=== PATIENT | male | born 1940 | race Caucasian/White ===

== ENCOUNTER 2022-01-28 14:27 | Outpatient (REF) | payer MEDICARE, MEDICAID, SELFPAY ==
[2022-01-28 18:48] LABS: MANUAL DIFF FLAG NO
[2022-01-28 18:52] LABS: Basophils Absolute Auto 0.1 X10*3/uL (0.0-0.2); Basophils Percent Auto 0.8 % (0-2); Eosinophils Absolute Auto 0.2 X10*3/uL (0.0-0.4); Eosinophils Percent Auto 2.8 % (0-4); Hematocrit 45.9 % (42.0-52.0); Hemoglobin 15.6 g/dl (14.0-18.0); Imm Gran Abs Auto 0.02 X10*3/uL (0.00-0.03); Imm Gran Pct Auto 0.3 % (0.0-0.4); Lymphocytes Absolute Auto 1.7 X10*3/uL (1.2-4.9); Lymphocytes Percent Auto 26.3 % (20-40); Mean Corpuscular Hemoglobin 30.1 pg (27.0-33.0); Mean Corpuscular Volume 88.4 fL (80.0-98.0); Mean Platelet Volume 10.4 fL (9.4-12.4); Monocytes Absolute Auto 0.7 X10*3/uL (0.1-1.2); Monocytes Percent Auto 11.4 % (2-11); Neutrophils Absolute Auto 3.7 x10*3/uL (2.0-8.3); Neutrophils Percent Auto 58.4 % (45-73); Platelet Count 230 X10*3/uL (160-400); Red Blood Count 5.19 X10*6/uL (4.60-5.80); Red Cell Distribution Width 13.2 % (11.0-16.0); White Blood Count 6.4 X10*3/uL (4.8-10.8)
[2022-01-28 19:16] LABS: Iron 87 mcg/dL (45-160); Percent Iron Saturation 26 % (15-50); Total Iron Binding Capacity 339 mcg/dL (228-428); Unsaturated Iron Binding 252 ug/dL
[2022-01-28 19:35] LABS: Ferritin 212 ng/mL (20-250)
== END 2022-01-28 14:28 | disposition home or self-care (01) ==
LOC: HO.MANLDS 14:27
PROVIDERS: Visit Provider Physician Assistant
DX: K92.1 Melena (principal)
CPT/HCPCS: 36415; 82728; 83540; 85025

== ENCOUNTER 2022-01-31 | Outpatient (REF) | payer MEDICARE, MEDICAID, SELFPAY ==
[2022-02-05 09:19] LABS: OBS1 NEGATIVE (NEGATIVE); OBS2 NEGATIVE (NEGATIVE)
[2022-02-05 09:20] LABS: OBS Int Ctl Valid YES; OBS3 NEGATIVE (NEGATIVE)
== END 2022-01-31 00:01 | disposition home or self-care (01) ==
LOC: HO.LNP
PROVIDERS: Visit Provider Physician Assistant
DX: K92.1 Melena (principal)
CPT/HCPCS: 82270

== ENCOUNTER 2023-04-28 08:00 | Outpatient (REF) | payer MEDICARE, MEDICAID, SELFPAY ==
[2023-04-28 12:43] LABS: MANUAL DIFF FLAG NO
[2023-04-28 12:43] LABS: Urine Cytology See Pathology rpt
[2023-04-28 12:48] LABS: Basophils Percent Auto 0.6 % (0-2); Eosinophils Absolute Auto 0.2 X10*3/uL (0.0-0.4); Hematocrit 47.7 % (42.0-52.0); Hemoglobin 16.2 g/dl (14.0-18.0); Imm Gran Abs Auto 0.02 X10*3/uL (0.00-0.03); Imm Gran Pct Auto 0.3 % (0.0-0.4); Lymphocytes Absolute Auto 1.9 X10*3/uL (1.2-4.9); Lymphocytes Percent Auto 26.6 % (20-40); Mean Corpuscular Hemoglobin 29.6 pg (27.0-33.0); Mean Platelet Volume 10.1 fL (9.4-12.4); Monocytes Absolute Auto 0.7 X10*3/uL (0.1-1.2); Monocytes Percent Auto 10.5 % (2-11); Neutrophils Absolute Auto 4.1 x10*3/uL (2.0-8.3); Platelet Count 241 X10*3/uL (160-400); Red Blood Count 5.48 X10*6/uL (4.60-5.80); Red Cell Distribution Width 13.1 % (11.0-16.0)
[2023-04-28 12:49] LABS: Appearance Urine Clear; Color Urine Yellow; Glucose Urine UA 100 mg/dL (Negative); Leukocyte Esterase Urine Negative (Negative); Nitrite Urine Negative (Negative); PH 5.5 (5.0-9.0); UMIC TRIGGER UACC YES; Urine Blood Trace (Negative); Urine Ketones Negative (Negative); Urine Protein Negative (Neg-Trace)
[2023-04-28 12:52] LABS: Bacteria Urine None Seen (None Seen); Hyaline Casts Urine 0-2 /LPF (0-2); Squamous Epithelial Cell Urine 0-2 /HPF (0-2); WBC Urine 0-5 /HPF (0-5)
[2023-04-28 12:55] LABS: Estimated Average Glucose 134 mg/dL; Hemoglobin A1c % 6.3 % (<6.0)
[2023-04-28 13:13] LABS: Alanine Aminotransferase 21 U/L (0-40); Albumin Level 4.3 g/dL (3.5-5.0); Alkaline Phosphatase 75 U/L (39-117); Anion Gap 12 (12-20); Aspartate Amino Transferase 24 U/L (5-37); Bilirubin Total 1.3 mg/dL (0.0-1.0); Blood Urea Nitrogen 17 mg/dL (9-16); Carbon Dioxide 28 mmol/L (22-29); Chloride 103 mmol/L (96-108); Cholesterol 162 mg/dL (<200); Estimated Glomerular Filt Rate > 60; Glucose Random 128 mg/dL (60-115); HDL Cholesterol 41 mg/dL (>40); LDL Cholesterol Calculated 98 mg/dL (<100); Sodium 139 mmol/L (135-145); Total Protein 7.7 g/dL (6.5-8.0); Triglycerides 117 mg/dL (<150)
[2023-04-28 13:41] LABS: Creatinine Urine 97.67 mg/dL; Microalbum/Creatinine Ratio Ur 15.3 ug/mg cr (<30)
== END 2023-04-28 08:01 | disposition home or self-care (01) ==
LOC: HO.MANLDS 08:00
PROVIDERS: Visit Provider Internal Medicine
DX: E11.9 Type 2 diabetes mellitus without complications (principal); R31.0 Gross hematuria
CPT/HCPCS: 36415; 80053; 80061; 81001; 82043; 82570; 83036; 85025; 88112

== ENCOUNTER 2023-08-13 09:15 | Outpatient (REF) | payer MEDICARE, MEDICAID, SELFPAY ==
[2023-08-13 12:35] LABS: MANUAL DIFF FLAG NO
[2023-08-13 12:51] LABS: Basophils Percent Auto 0.4 % (0-2); Eosinophils Absolute Auto 0.2 X10*3/uL (0.0-0.4); Eosinophils Percent Auto 2.3 % (0-4); Hematocrit 45.2 % (42.0-52.0); Hemoglobin 15.2 g/dl (14.0-18.0); Imm Gran Abs Auto 0.03 X10*3/uL (0.00-0.03); Imm Gran Pct Auto 0.4 % (0.0-0.4); Lymphocytes Absolute Auto 1.8 X10*3/uL (1.2-4.9); Mean Corpuscular HGB Conc 33.6 g/dl (31.0-36.0); Mean Corpuscular Hemoglobin 29.7 pg (27.0-33.0); Mean Corpuscular Volume 88.3 fL (80.0-98.0); Mean Platelet Volume 10.2 fL (9.4-12.4); Monocytes Absolute Auto 0.8 X10*3/uL (0.1-1.2); Monocytes Percent Auto 9.9 % (2-11); Neutrophils Absolute Auto 5.2 x10*3/uL (2.0-8.3); Platelet Count 229 X10*3/uL (160-400); Red Blood Count 5.12 X10*6/uL (4.60-5.80); Red Cell Distribution Width 13.1 % (11.0-16.0)
[2023-08-13 13:00] LABS: Estimated Average Glucose 131 mg/dL; Hemoglobin A1c % 6.2 % (<6.0)
[2023-08-13 13:08] LABS: Alanine Aminotransferase 17 U/L (0-40); Albumin Level 4.3 g/dL (3.5-5.0); Alkaline Phosphatase 73 U/L (39-117); Anion Gap 12 (12-20); Aspartate Amino Transferase 21 U/L (5-37); Bilirubin Total 1.1 mg/dL (0.0-1.0); Blood Urea Nitrogen 14 mg/dL (9-16); Calcium 9.1 mg/dL (8.4-10.2); Carbon Dioxide 29 mmol/L (22-29); Chloride 103 mmol/L (96-108); Estimated Glomerular Filt Rate > 60; Glucose Random 114 mg/dL (60-115); Potassium 3.9 mmol/L (3.3-5.1); Sodium 140 mmol/L (135-145); Total Protein 7.4 g/dL (6.5-8.0)
[2023-08-13 13:10] LABS: B Type Natriuretic Peptide 170 pg/mL (<100)
== END 2023-08-13 09:16 | disposition home or self-care (01) ==
LOC: HO.MANLDS 09:15
PROVIDERS: Visit Provider Internal Medicine
DX: I42.9 Cardiomyopathy, unspecified (principal); E11.9 Type 2 diabetes mellitus without complications
CPT/HCPCS: 36415; 80053; 83036; 83880; 85025

== ENCOUNTER 2024-09-29 15:21 | Outpatient (REF) | payer MEDICARE, MEDICAID, SELFPAY ==
[2024-09-29 18:02] LABS: MANUAL DIFF FLAG NO
[2024-09-29 18:05] LABS: Basophils Percent Auto 0.6 % (0-2); Eosinophils Absolute Auto 0.2 X10*3/uL (0.0-0.4); Eosinophils Percent Auto 2.9 % (0-4); Hematocrit 42.4 % (42.0-52.0); Hemoglobin 14.6 g/dl (14.0-18.0); Imm Gran Abs Auto 0.02 X10*3/uL (0.00-0.03); Imm Gran Pct Auto 0.3 % (0.0-0.4); Lymphocytes Percent Auto 27.5 % (20-40); Mean Corpuscular HGB Conc 34.4 g/dl (31.0-36.0); Mean Corpuscular Hemoglobin 30.4 pg (27.0-33.0); Mean Corpuscular Volume 88.1 fL (80.0-98.0); Mean Platelet Volume 10.4 fL (9.4-12.4); Monocytes Absolute Auto 0.9 X10*3/uL (0.1-1.2); Monocytes Percent Auto 12.5 % (2-11); Neutrophils Percent Auto 56.2 % (45-73); Platelet Count 227 X10*3/uL (160-400); Red Blood Count 4.81 X10*6/uL (4.60-5.80); Red Cell Distribution Width 13.6 % (11.0-16.0); White Blood Count 7.1 X10*3/uL (4.8-10.8)
[2024-09-29 18:07] LABS: Appearance Urine Cloudy; Color Urine Orange; Glucose Urine UA Negative (Negative); Leukocyte Esterase Urine Small (1+) (Negative); Nitrite Urine Negative (Negative); PH 5.5 (5.0-9.0); Specific Gravity - Urine 1.025 (1.005-1.025); UMIC TRIGGER UACC YES; Urine Blood Large (3+) (Negative); Urine Ketones Negative (Negative); Urine Protein 100 (2+) mg/dL (Neg-Trace)
[2024-09-29 18:14] LABS: Bacteria Urine None Seen (None Seen); Hyaline Casts Urine 0-2 /LPF (0-2); RBC Urine >20 /HPF (0-2); Squamous Epithelial Cell Urine 0-2 /HPF (0-2); UACC Culture Trigger YES; WBC Urine 0-5 /HPF (0-5)
[2024-09-29 18:21] LABS: Iron 81 mcg/dL (45-160); Percent Iron Saturation 28 % (15-50); Total Iron Binding Capacity 291 mcg/dL (228-428); Unsaturated Iron Binding 210 ug/dL
[2024-09-29 18:38] LABS: Ferritin 139 ng/mL (20-250)
== END 2024-09-29 15:22 | disposition home or self-care (01) ==
LOC: HO.MANLDS 15:21
PROVIDERS: Visit Provider Internal Medicine
DX: R31.0 Gross hematuria (principal)
CPT/HCPCS: 36415; 81001; 82728; 83540; 85025; 87086

== ENCOUNTER 2024-11-10 09:22 | Outpatient (REF) | payer MEDICARE, MEDICAID, SELFPAY ==
--- OUTSIDE RECORDS SUMMARY | 2024-11-10 09:37 | XMS_ITS | Clinical Summary ---
Author Organization [employer] Address [address] [place] [address] [address] [place] [address] Care Team Providers Care Cath Lab Radiological Technologist Name Role Phone Unavailable Primary Care Provider Unavailabl e Allergies No known active allergies Medications warfarin (Coumadin) 1 MG tablet Take by mouth. Take as directed per After Visit Summary. 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 Ill-fitting dentures 06/15/2024 Social History Tobacco Use Types Packs/Day Years Used Date Smoking Tobacco: Never Passive Smoke Exposure: Never Smokeless Tobacco: Never Tobacco Cessation:Counseling Given: No Alcohol Use Standard Drinks/Week Comments Never 0 (1 standard drink = 0.6 oz pur e alcohol) Sex and Gender Information Value Date Recorded Sex Assigned at Male 05/04/2022 10:23 AM EDT Legal Sex Male 10:23 AM EDT Gender Identity Male 05/19/2024 3:48 PM EST Sexual Orientation Straight 05/19/2024 3: 48 PM EST Plan of Treatment Upcoming Encounters Date Type Department Care Team (Late st Contact Info) Description 12/22/2024 10:30 AM EDT Office Visit [facility] [address] [place] [address] Alfred Arteaga DDS [address] [place] [address] Health Maintenance Due Date Last Done Comments Depression Screening 1941 Lipid Panel 1941 SDOH Screening 1941 Alcohol/Substance Use Screening 1953 Dental X-Ray: Bitewings 01/23/2015 01/22/2014 Dental Prophylaxis 04/09/2016 10/08/2015, 1 , 10/02/2014 RSV Patients and Patients Aged 60 years or older (1 - 1-dose 75+ series) 2016 COVID-19 Vaccine ( - season) 2024 07/24/2021, 08/28/2020, 08/10/2020 Influenza Vaccine (#1) 2024 , 04/24/2019, 04/25/2018, Additional history exists Dental Oral Exam 12/15/2024 06/15/2024, 11/2015, 04/05/2015, Additional history exists Tobacco Screening 06/15/2025 06/15/2024 Dental X-Ray: Full Mouth 06/16/2027 06/15/2024, 01/03 DTaP/Tdap/Td Vaccines (2 - Td or Tdap) 09/10/2033 09/11/2023 Pneumococcal Vaccine: 50+ Years Completed 06/02/2019, 04/25/2018 Zoster Vaccines Completed 07/06/2019, 04/24/2019 HIB Vaccines Aged Out No longer eligi ble based on patient's age to complete this topic HPV Vaccines Aged Out No longer eligi ble based on patient's age to complete this topic Hepatitis A Vaccines Aged Out No long er eligible based on patient's age to complete this topic Hepatitis B Vaccines Aged Out No long er eligible based on patient's age to complete this topic IPV Vaccines Aged Out No longer eligi ble based on patient's age to complete this topic Meningococcal Vaccine Aged Out No alma lawrence eligible based on patient's age to complete this topic RSV under 20 months Aged Out No longe r eligible based on patient's age to complete this topic Rotavirus Vaccines Aged Out No longer eligible based on patient's age to complete this topic Procedures Procedure Name Priority Date/Time Associated Diagnosis Comments PANORAMIC RADIOGRAPHIC IMAGE Routine 06/15/2024 2:30 PM EST PERIODIC ORAL EVALUATION - ESTABLISHED PATIENT Routine 06/15/2024 2:30 PM EST PROPHYLAXIS - ADULT Routine 10/08/2015 1 2:00 AM EDT INTRAORAL - COMPLETE SERIES OF RADIOGRAPHIC IMAGES Routine 01/22/2014 12:00 AM EDT from Last 3 Months or Most Recently Relevant to Health Maintenance Insurance D[facility]AL-[facility] MEDICAID STAND ADULT
--- OUTSIDE RECORDS SUMMARY | 2024-11-10 09:38 | XMS_ITS | Data Portability ---
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) MDM MODERATE MUST MEET 2 OUT OF 3 ELEMENTS: PROBLEMS, DATA OR RISK ELEMENT 1: PROBLEMS ADDRESSED 1 OR MORE CHRONIC ILLNESS WITH EXACERBATION OR 2 OR MORE STABLE CHRONIC ILLNESSES OR 1 UNDIAGNOSED NEW PROBLEM OR 1 ACUTE ILLNESS W/SYMPTOMS OR 1 ACUTE COMPLICATED INJURY ELEMENT 2: DATA MUST MEET 1 OF 3 CATEGORIES CATEGORY 1: REVIEW OF PRIOR EXTERNAL NOTES, REVIEW OF RESULTS, ORDERING OF EACH TEST, ASSESSMENT REQUIRING INDEPENDENT HISTORIAN OR CATEGORY 2: INDEPENDENT INTERPRETATION OF TESTS BY ANOTHER PHYSICIAN OR SPECIALIST OR CATEGORY 3: DISCUSSION OF MGT OR TEST INTERPRETATION W/EXTERNAL PHYSICIAN OR SPECIALIST ELEMENT 3: RISK RISK OF COMPLICATIONS AND/OR MORBIDITY OR MORTALITY OF PATIENT MANAGEMENT PROVIDER MUST THOROUGHLY DOCUMENT EACH ELEMENT THAT IS COVERED Not available 04/27/2023 15:49:19 09/01/2024 09/01/2024 Patient presente d for medication refill. Patient tolerating medication well at current dose without adverse effects. Refilled as below. Discussed plan with patient, who expressed understanding. Follow up as noted below. [email or web address] Not available 09/01/2024 09:26:43 Plan of Treatment Reminders Order Date Submit Date Provider Last Modified By Organization Details Last Modified Time Details Appointments None recorded. Lab CMP, serum or plasma 2024 025 [facility], [address] [place] [address], [address], 09:31:35 HbA1c (hemoglobi n A1c), blood 2024 025 [facility], [address] [place] [address], [address], 5 09:31:35 lipid panel, blood 2024 025 [facility], [address] [place] [address], [address], 5 09:31:35 CBC w/ auto diff 2024 025 [facility], [address] [place] [address], [address], 5 09:31:35 urinalysis complete, reflex culture 2022 023 [facility], [address] [place] [address], [address], 4 17:20:44 cytology, urine 2022 023 [facility], [address] [place] [address], [address], 3 12:19:51 HbA1c (hemoglobi n A1c), blood 2022 023 [facility], [address] [place] [address], [address], 3 15:50:51 CMP, serum or plasma 2022 023 [facility], [address] [place] [address], [address], 3 15:50:51 lipid panel, blood 2022 023 [facility], [address] [place] [address], [address], 3 15:50:51 CBC 2022 023 [facility], [address] [place] [address], [address], 4 17:43:34 microalbum in, urine 2022 023 [facility], [address] [place] [address], [address], 3 15:50:51 CBC w/ auto diff 2021 022 [facility], [address] [place] [address], [address], 2 13:09:53 iron + TIBC + ferritin, serum 2021 022 [facility], [address] [place] [address], [address], 2 13:09:53 fecal occult blood, stool 2021 022 [email or web address] 10 [facility], [address] [place] [address], [place], [address], 2 08:57:48 Referral None recorded. Procedures None recorded. Surgeries None recorded. Imaging XR, chest, 2 view 2023 024 ABEL Not available 4 20:51:28 Medication Orders Jantoven 3 mg tablet 2024 025 [id number], [address] [place], [address], 5 09:26:54 terbinafin e HCl 250 mg tablet 2022 023 [id number], [address] [place], [address], 3 15:49:34 Patient TargetsNo targets recorded. Patient Instructions Encounter Date Encounter Id Patient Instructions Last Modified By Organization Details Last Modified Time 04/27/2023 [id number] pulse oximetry* Not available 04/27/2023 15:49:36 Reason for Referral None Reported. Results Created Date Observation Date Name Description Value Unit Range Abnormal Flag Note LastModifiedBy Organization Detail LastModifiedTime 04/27/2004/27/2023 pulse oxime try* Result 96 Not Available [facility] [address], [place], [address], 04/27/2023 10:51:26 09/18/19 23 09/14/2022 US, echoc ardio gram No observ ation record ed. [email or web address] [facility] [address], [place], [address], 09/17/2022 11:45:49 09/07/19 24 09/06/2023 US, echoc ardio gram No observ ation record ed. [email or web address] [facility] [address], [place], [address], 09/07/2023 08:22:42 09/11/19 24 09/11/2023 XR, chest , 2 view No observ ation record ed. [email or web address] [facility] (Emergency Room) [address] [place] [address], [address], 09/20/2023 14:39:18 09/27/19 24 09/24/2023 XR, chest , 2 view No observ ation record ed. [address], [address], 09/28/2023 12:13:48 10/10/19 24 10/09/2023 CT, chest , w/o contr ast No observ ation record ed. [address], [address], 10/12/2023 11:20:56 05/02/20 24 05/02/2024 trans -thor acic echoc ardio gram (TTE) (PROC ) No observ ation record ed. [email or web address] [place] [address] [facility] [address], [place], [address], 05/04/2024 12:56:21 10/07/19 25 10/06/2024 US, bla er No observ ation record ed. [facility] [address] [facility], [place], [address], 10/09/2024 14:25:14 Result Notes None recorded. Problems Name Problem SNOMED Code Status Onset Date Resolution Date Notes Provider Name and Address Organization Details Recorded Time Essential hypertens ion 61644389 Active 2017 Not Available [facility] 4 19:23:51 Type 2 diabetes mellitus 81887545 Active 2020 Not Available [facility] 4 19:23:51 Glaucoma 43406790 Active 2020 Not Available [facility] 4 19:23:50 Hematoche leo 385520707 Active 2021 Not Available [facility] 4 19:23:51 Skin tag 885094114 Active 2022 Not Available [facility] 4 19:23:50 Deandre hematuria 074489953 Active 2022 Not Available [facility] 4 19:23:50 Onychomyc osis of toenails 239794764 Active 2022 Not Available [facility] 4 19:23:51 Mild recurrent major depressio n 11022780 Active 2022 Not Available [facility] 4 19:23:51 Left lower zone pneumonia 853804070 Active 2023 Slick Shah DO [address] [place], [address], [facility] 4 22:56:14 Pneumonia 549720883 Active 2023 ALBER MON [address] [place] [address], [address], [place] [facility] 4 14:32:29 Laceratio n of right hand 49967602347 069558 Active 2023 ALBER MON [address] [place] [address], [address], [facility] 4 14:40:33 Reactive airway disease 00957553114 6 Active 2023 ALBER MON [address] [place], [address], [facility] 4 11:21:50 Type 2 diabetes mellitus without complicat ion 048139718 Active 2024 ALBER MON [address] [place], [address], [facility] 5 09:29:14 Eczema 70514593 Active 2017 Not Available [facility] 4 19:23:51 Cardiomyo tori 32078126 Active 2017 Not Available [facility] 4 19:23:51 Congestiv e heart failure 41915649 Active 2017 Not Available [facility] 4 19:23:51 Atrial fibrillat ion 92891431 Active 2017 Not Available [facility] 4 19:23:51 Impaired fasting glycemia 518604656 Active 2017 Not Available [facility] 4 19:23:51 Benign prostatic hyperplas ia 045217804 Active 2017 Not Available [facility] 4 19:23:50 Gastric ulcer 420145419 Active 2017 severe bleed,a nemia Not Available [facility] 4 19:23:51 Asthma 633448039 Active 2017 Not Available [facility] 4 19:23:50 Problem Notes None recorded. Procedures Surgical History Date Name Laterality Status Provider Name and Address Organization Details Recorded Time 4 Suture/Stap le removal completed ALBER MON [address] [place], [address], [facility] 09/20/2023 14:40:17 Imaging Results Imaging Date Name Status LastModified by Organization Details LastModified Time 09/14/2022 US, echocardiogram completed [address] [facility] [address] [place], [address], 09/17/2022 11:45:49 09/06/2023 US, echocardiogram completed [facility] [address], [place], [address], 09/07/2023 08:22:42 09/11/2023 XR, chest, 2 view completed [email or web address] [facility] (Emergency Room) [address] [place] [address], [address], 09/20/2023 14:39:18 09/24/2023 XR, chest, 2 view completed [address], [address], 09/28/2023 12:13:48 10/09/2023 CT, chest, w/o contrast completed [address], [address], 10/12/2023 11:20:56 05/02/2024 trans-thoracic echocardiogram (TTE) (PROC) completed [address] [facility] [address], [place], [address], 05/04/2024 12:56:21 10/06/2024 US, bladder completed [address], [address], 10/09/2024 14:25:14 Procedure Notes None recorded. Medical Equipment None Reported. Allergies Allergen ID Allergen Name Allergen Category Reaction Reaction Severity Criticality Documentation Date Start Date Code Code System Note Provider Name and Address Organization Details Recorded Time 1544 lisinopri l medicatio n angioedem a Not available Not available 12/07/2017 63226 [facility] 8 16:43:29 1545 aspirin medicatio n Not available Not available Not available 12/07/2017 1191 [facility] 8 16:43:44 2220 bupropion Not available dizziness Not available Not available 03/08/2018 74952 RxNorm Heada Annika harrell [place] [facility] 8 16:03:39 Medications Name Sig Start Date Stop Date Status Note LastModified by Organization Details LastModified Time Prescriptio n - Prior Authorizati on Request 02/22 completed Not Available Not Available Not Available losartan 50 mg tablet TAKE 1 TABLET BY MOUTH EVERY DAY active Not Available Not Available No t Available latanoprost 0.005 % eye drops INSTILL 1 DROP INTO THE AFFECTED EYE(S) AT BEDTIME active Not Available Not Available No t Available atorvastati n 40 mg tablet TAKE ONE TABLET BY MOUTH EVERY DAY active Not Available Not Available No t Available carvedilol 25 mg tablet TAKE ONE TABLET BY MOUTH TWICE A DAY WITH MEALS active Not Available Not Available No t Available carvedilol 6.25 mg tablet TAKE ONE TABLET BY MOUTH TWICE A DAY 07/08 completed Not Available Not Available Not Available carvedilol 12.5 mg tablet TAKE ONE TABLET BY MOUTH TWICE A DAY WITH MEALS active Not Available Not Available No t Available azithromyci n 250 mg tablet 12/27 completed Not Available Not Available Not Available glipizide ER 5 mg tablet, extended release 24 hr TAKE ONE TABLET BY MOUTH EVERY DAY active Not Available Not Available No t Available ciprofloxac in 500 mg tablet Take 1 tablet every 12 hours by oral route for 10 days. 07/19 completed Not Available Not Available Not Available oxycodone-a cetaminophe n 5 mg-325 mg tablet take 1 tab up to three times per day, only if needed for pain related to shingles rash 05/11 completed Not Available Not Available Not Available terbinafine HCl 250 mg tablet TAKE ONE TABLET BY MOUTH EVERY DAY active Not Available Not Available No t Available ofloxacin 0.3 % ear drops INSTILL 5 DROPS INTO THE LEFT EAR TWO TIMES A DAY FOR 7 DAYS active Not Available Not Available No t Available lidocaine 5 % topical patch APPLY 1 PATCH BY TRANSDERM AL ROUTE ONCE DAILY (MAY WEAR UP TO 12HOURS.) 05/11 completed Not Available Not Available Not Available gabapentin 100 mg capsule take 1 -2 capsules up to three times per day as needed for pain from shingles. DO NOT DRIVE WITH THIS MEDICATIO N. 02/02 completed Not Available Not Available Not Available bupropion HCl XL 150 mg 24 hr tablet, extended release Take 1 tablet every day by oral route for 30 days. 03/08 completed Not Available Not Available Not Available Jantoven 1 mg tablet please 1 tab po qd or as directed by coumadin clinic 07/19 completed Not Available Not Available Not Available Jantoven 3 mg tablet TAKE ONE TABLET BY MOUTH EVERY DAY active Not Available Not Available No t Available Lyrica 50 mg capsule 02/22 completed Not Available Not Available Not Available Zyrtec qd 04/02 completed Not Available Not Available Not Available Havrix (PF) 1,440 LUIS unit/mL intramuscul ar syringe 04/02 completed Not Available Not Available Not Available melatonin 5 mg capsule Take 1 capsule every day by oral route at bedtime. 03/14 completed Not Available Not Available Not Available Breo Ellipta 100 mcg-25 mcg/dose powder for inhalation INHALE ONE PUFF BY MOUTH EVERY DAY 06/16 completed Not Available Not Available Not Available Arnuity Ellipta 100 mcg/actuati on powder for inhalation INHALE ONE PUFF BY MOUTH EVERY DAY active Not Available Not Available No t Available Breo Ellipta 200 mcg-25 mcg/dose powder for inhalation INHALE ONE PUFF BY MOUTH THREE TIMES A DAY active Not Available Not Available No t Available Shingrix (PF) 50 mcg/0.5 mL intramuscul ar suspension, kit 04/02 completed Not Available Not Available Not Available Vitals Date Recorded Body height Body mass index (BMI) Body weight Heart rate Oxygen saturation Oxygen saturation in Arterial blood by Pulse oximetry Systolic blood pressure Diastolic blood pressure Provider Name and Address Organization Details Last Updated DateTime 2 175.9 cm 29.8 kg/m2 80367.2 5 g 82 /min 97 % 97 % 142 mm[Hg] 80 mm[Hg] ALBER MON [address] [place], [address] [place], [place] - [facility] 2 14:04:48 Date Recorded Body height Body mass index (BMI) Body weight Oxygen saturation Oxygen saturation in Arterial blood by Pulse oximetry Provider Name and Address Organization Details Last Updated DateTime 11/13/2022 175.9 cm 30.3 kg/m2 49094.6 2 g 99 % 99 % Alessandra Gupta [facility] 3 13:47:18 Date Recorded Body height Body mass index (BMI) Body weight Heart rate Oxygen saturation Oxygen saturation in Arterial blood by Pulse oximetry Systolic blood pressure Diastolic blood pressure Provider Name and Address Organization Details Last Updated DateTime 3 175.9 cm 29.6 kg/m2 09041.6 6 g 72 /min 96 % 96 % 131 mm[Hg] 62 mm[Hg] Carrol Borges [facility] 3 15:16:46 Date Recorded Body height Provider Name an d Address Organization Details Last Updated DateTime 09/20/2023 175.9 cm Winnie Darshan [facility] 09/20/2023 14:24:47 Date Recorded Body height Body mass index (BMI) Body weight Heart rate Oxygen saturation Oxygen saturation in Arterial blood by Pulse oximetry Systolic blood pressure Diastolic blood pressure Provider Name and Address Organization Details Last Updated DateTime 5 175.9 cm 30.1 kg/m2 27184.4 4 g 85 /min 96 % 96 % 128 mm[Hg] 88 mm[Hg] Winniejohnathan Sexton [facility] 5 09:11:03 Social History Question Answer Notes LastModified by Organizat ion Details LastModified Time Tobacco Smoking Status Never Smoker Not Available [facility] 05/07/2020 03:36:24 What Was The Date Of Your Most Recent Tobacco Screening? 09/01/2024 [email or web address] Information not available 09/01/2024 Do You Or Have You Ever Used Any Other Forms Of Tobacco Or Nicotine? No [email or web address] Information not available 01/28/2022 Sex: Unknown Functional Status None recorded. Mental Status None recorded. Family History Nothing Reported. Medical History No medical history recorded. Immunizations Vaccine Type Date Status Note Provider Nam e and Address Organization Details Recorded Time COVID-19, mRNA, LNP-S, PF, 30 mcg/0.3 mL dose 2 completed Not Available [facility] 07/16/2023 19:23:51 Influenza, split virus, quadrivalent, preservative 8 completed Not Available [facility] 07/16/2023 19:23:51 pneumococcal polysaccharide PPV23 9 completed Not Available [facility] 07/16/2023 19:23:52 zoster, unspecified formulation 0 completed Not Available [facility] 07/16/2023 19:23:51 COVID-19, mRNA, LNP-S, PF, 30 mcg/0.3 mL dose 1 completed Not Available [facility] 07/16/2023 19:23:52 COVID-19, mRNA, LNP-S, PF, 30 mcg/0.3 mL dose 1 completed Not Available [facility] 07/16/2023 19:23:52 Past Encounters Encounter ID Performer Location Encounter Start Date Encounter Closed Date Diagnosis/Indication Diagnosis SNOMED-CT Code Diagnosis ICD10 Code Diagnosis Note [id number] Slick Shah [facility] [address] [facility] [place] [address] 12/08/2017 10:47:10 12/08/2017 11:18:04 [id number] Slick Shah [facility] [address] [facility],[place] [address] 12/08/2017 16:17:11 12/08/2017 16:59:35 Herpes zoster 0564154 B02.9 healing now continue conservati ve care will rx gabapentin for the sharp pains lidocaine patches in future if post herpetic neuralgia develops Asthma 943628158 J45.90 9 quiet Melena 5833175 K92.1 low suspicion of ongoing bleed as he's had normal BM today and no other sx will do stool test and blood counts tomorrow will check pt inr tomorrow as he will be due the anyway last result we have was the 10/18 and it was therapeuti c if black stools return, instructed to f/u immediatel y [id number] Slick Shah [facility] [address] [facility] [address] 12/27/2017 15:10:53 12/27/2017 16:33:03 Herpes zoster 0093346 B02.9 gabapentin not very helpful amitriptyl ine contraindi cated will trial lyrica extreme caution recommende d with driving with this medication due to drowsiness 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 -failed gabapentin in past -has only been taking lyrica qd, he was reassured he can take 1-2 tablets up to three times per day, but be cautious of drowsiness -he may also simultaneo usly use the lidoderm patches, which he had stopped using as well -he is not really a good candidate for amitriptyl ine with his afib, DDI between BP meds, being elderly, and h/o glaucoma Herpes zoster 7905088 B0 2.9 initial infection resolved Atrial fibrillation 4943 6004 I48.91 quiet [id number] Slick Shah [facility] [address] [facility],[place] [address] 02/22/2018 14:28:52 02/22/2018 15:19:28 Postherpetic neuralgia 3854448 B02.29 he has good relief with percocet this is unfortunat e given the highly addictive nature of this medication . this risk was discussed with the pt and his son in law. we will try and minimize its use and hopefully wean off as soon as possible will have every 2 week f/u for this medication was advised that percocet can diminish appetite and lead to constipati on. please take stool softener if constipati on occurs Anxiety 46217481 F41.9 will treat similarly Mild recur rent major depression 27942188 F33.0 get coumadin check in 1 week for DDI between wb and jantoven f/u here for BP check in 2 weeks for DDI between wb and carvedilol Insomnia 943219121 G47.0 0 continue melatonin for now, consider doxepin in future as this may have some benefit for PHN as well Asthma 368180535 J45.90 9 quiet [id number] Slick Shah [facility] Internal [facility] [address] [facility], [place] [address] 03/08/2018 15:58:27 03/08/2018 16:43:17 Postherpetic neuralgia 7371129 B02.29 he has good relief with percocet he is using the medication relatively sparingly will call for refills if needed Anxiety 94095483 F41.9 refusing further treatment does not feel anxious anymore denies the sensation of excess salivation and subsequent choking feeling anymore Mild recur rent major depression 93299623 F33.0 again refusing any treatment here, does not feel its necessary Insomnia 875831156 G47.0 0 melatonin 6 mg seems to be helping Asthma 207013865 J45.90 9 quiet [id number] [facility] [address] [facility],[place] [address] 05/11/2018 13:26:03 05/11/2018 14:03:27 Asthma 667643233 J45.909 quiet Impaired f asting glycemia 641321594 R73.01 Atrial fibrillation 4943 6004 I48.91 quiet Essential hypertension 72595219 I10 well controlled Advance care planning 71 9759980 Z71.89 provided [facility] paper work will discuss with his daughter [id number] [facility] [address] [facility],[place] [address] 02/27/2019 15:47:46 02/27/2019 16:25:57 Seborrheic keratosis of scalp 262466170 L82.1 benign, reassuranc e provided Melanocyti c nevus of skin 399807762 D22.9 likely benign, will have derm visualize Skin lesion 48482560 L98 .9 lesion 1 - inflamed follicle vs BCC - will give derm referral [id number] Slick Shah [facility] Internal [facility] [address] [facility], [place] [address] 03/14/2019 11:16:39 03/14/2019 12:01:06 Atrial fibrillation 45260112 I48.91 rate controlled restart coumadin tomorrow INR have been normal as recently as 02/22 is scheduled for recheck the , will recommend he have it sooner Deandre hematuria 72540655 5 R31.0 ? bladder infection restart coumadin tomorrow but call if bleeding restarts Benign pro static hyperplasia 426671581 N40.0 Essential hypertension 29099497 I10 well controlled [id number] October RADHA Caruso [facility] [address] [facility] [address],[place] [address] 07/19/2019 11:05:35 07/19/2019 11:50:46 Cough 12583960 R05 lungs are clear, believe cough related to breo noncomplia nce [place] long the sx improved immediatel y with treatment Asthma 248905093 J45.90 9 controlled with breo, will send rx has one at home Mild recur rent major depression 00964926 F33.0 no meds for this, generally feels well Atrial fibrillation 4943 6004 I48.91 rate controlled [id number] Slick Shah DO [facility] [address] [facility] [address],[place] [address] 04/02/2020 11:05:19 04/02/2020 11:43:21 Essential hypertension 96900918 I10 BP is great today needs refills Atrial fibrillation 4943 6004 I48.91 sees cardio, doing good, no episodes recently Congestive heart failure 37714475 I50.9 recently saw cardio Impaired f asting glycemia 097148081 R73.01 will check bw Asthma 446657975 J45.90 9 stable doing well no issues or exacerbati ons Dry eyes 356268669 H04.1 29 uses drops at night, needs refill [id number] Slick Shah DO [facility] [address] [facility] [address],[facility] [place] [address] 12/30/2020 09:39:10 12/30/2020 10:13:11 Type 2 diabetes mellitus 84944427 E11.9 start on glipizidef u in 3 mo for labworkfu with appt to discuss in 3 to 6 mo Mild recur rent major depression 22696298 F33.0 stable Congestive heart failure 40867102 I50.9 recently saw cardiostab le Atrial fibrillation 4943 6004 I48.91 sees cardio, doing good, no episodes recently [id number] Slick Shah [facility] [address], [place] [address] 07/08/2021 08:52:27 07/09/2021 13:50:33 Atrial fibrillation 88929730 I48.0 sees cardio, doing good, no episodes recently Asthma [id number] J45.40 fu with XR and pulm referral Type 2 nkechi betes mellitus 03900359 E11.9 still due for blood work, reminded patient and his daughterwi ll resubmit labs for patient Mild recur rent major depression 26558083 F33.0 stable Congestive heart failure 30451346 I50.22 stable [id number] Slick Shah [facility] [address],[place] [address] 01/28/2022 13:43:44 01/28/2022 14:32:00 Hematochezia [id number] K92.1 will fu with testingthe n call when tests returns [id number] Slick Shah [facility] [address],[place] [address] 11/13/2022 13:41:56 11/13/2022 16:06:05 Skin tag [id number] L91.8 resolved [id number] Slick Shah [facility] [address] [facility], [place] [address] 04/27/2023 14:58:04 04/27/2023 15:52:49 Asthma 893391802 J45.40 quiet and no symptoms lungs clear Atrial fibrillation 4943 6004 I48.0 quiet and currently in nsr Cardiomyopathy 82431712 I42.[address] stays very active Congestive heart failure 20502691 I50.22 lungs clear Essential hypertension 61359177 I10 stab;e and looks good Type 2 nkechi betes mellitus 86966379 E11.9 relates needs to get a1c and lab Mild recur rent major depression 00610420 F33.0 doing much better Deandre hematuria 75291100 5 R31.0 Onychomyco sis of toenails 335421640 B35.1 [id number] Slick Shah [facility] [address],[place] [address] 09/20/2023 14:21:14 09/20/2023 14:49:53 Pneumonia 638734534 J18.9 will give him the order for the repeat XR Removal of suture 840333 01 Z48.02 resolved, four stitches Laceration of right hand [id number] S61.411A resolved [id number] Slick Shah [facility] [address] [facility] [address],[place] [address] 09/01/2024 09:02:13 09/01/2024 09:56:26 Renewal of prescription 854679849 Z76.0 stable Type 2 nkechi betes mellitus without complication 595256584 E11.9 needs recheck, bw provided Atrial fibrillation 4943 6004 I48.0 sees clinic and cardio, currently on jantoven 3 mg Asthma 008989524 J45.40 stable Congestive heart failure 81436358 I50.22 stable Health Concerns Section Related Observation LastModified by Organization Detai ls LastModified Time None Recorded Concern Status LastModified by Organization Details LastModified Time None Recorded Advance Directives Directive None Recorded Payers Encounter Date Sequence Insurance Name Policy Number Policy Barragan Covered Member ID Barragan Member ID Guarantor Name 01/28/2022 1 [place] [employer] Alija Salatic [id number] Alija Salatic 01/28/2022 2 [place] [facility] Ali[facility] Salatic [id number] Alija Salatic 11/13/2022 1 [place] [employer] Alija Salatic [id number] Alija Salatic 11/13/2022 2 [place] Alija Salatic [id number] Alija Salatic 04/27/2023 1 [place] [employer] Alija Salatic [id number] Alija Salatic 04/27/2023 2 [place] [facility] Alija Salatic [id number] Alija Salatic 09/20/2023 1 [place] [employer] Alija Salatic [id number] Alija Salatic 09/20/2023 2 [place] [facility] Alija Salatic [id number] Alija Salatic 09/01/2024 1 [place] [employer] Alija Salatic [id number] Alija Salatic 09/01/2024 2 [place] [facility] Alija Salatic [id number] Alija Salatic Notes Date Note Type Note Provider Name a nd Address Organization Details Recorded Time 01/28/2022 text/html c/o blood in sto ol the patient son in law who is an rug layer for the patient is herethe patient has had two bowel movement with bright red bloodthe patient reports that since those two movements he hasn't had onedenies pain, itching, dark colored stools, abd pain, n/v/d will fu with blood work and stool culture just to make sure nothing else could be causing it other than internal hemorrhoids will fu with patient and TARA after bw returns ALBER MON [address] [place], [address], [facility] 01/28/2022 14:21:51 11/13/2022 text/html skin tag under t he left eye patient has skin tag under the left eyenot painful, no changing, did get snagged so it could be easily pull off accidentallypt and daughter consented to removalskin tag area was prepped and cleaned, removed and area treated with silvadene and bandaid ALBER MON [address] [place], [address], [facility] 11/13/2022 15:04:01 04/27/2023 text/html here for rechk a nd is doing good overallstates no cp no sobsleep goodappetite is good relates that he has noticed a little blood on occasion in his urine as of late Slick Shah, [address] [place], [address], [facility] 04/27/2023 15:49:59 09/20/2023 text/html suture removal right hand, base of the fifth fingertripped over his shoe lace and fell forward, caught himself on his hands and lacerated the tissuepatient is on coumadinhis daughter took him to the ERhis also diagnosed with pneumonianeeds recheck XR after the fact, given order today otherwise doing well, tolerated removalno other concerns today no signs of infection ALBER MON [address] [place], [address], [facility] 09/20/2023 14:41:02 09/01/2024 text/html medication f/u Type 2 diabetes: patient due for blood work, has been eating well and is activeis going out of the country for two weeks ([facility], [facility] he [facility] from)needed enough meds to get him through the trip, is all set with everything else atrial fibrillation: see cardio and the coumadin clinic, on the jantoven 3 mg every day, routine INR, doing well on it without any side effect like excess bleeding asthma: stable, no refill needed today ALBER MON [address] [place], [address], [facility] 09/01/2024 09:33:21
[2024-11-10 14:08] LABS: Prostate Specific Antigen 5.57 ng/mL (<0.05-4.0)
== END 2024-11-10 09:23 | disposition home or self-care (01) ==
LOC: HO.MANLDS 09:22
PROVIDERS: Visit Provider Physician Assistant
DX: Z12.5 Encounter for screening for malignant neoplasm of prostate (principal)
CPT/HCPCS: 36415; 84153